=== PATIENT | male | born 1995 | race Caucasian/White ===

== ENCOUNTER 2019-07-14 09:49 | Emergency (ER) | payer BC, MEDICAID ==
[~2019-07-14] VITALS: Ht 152.4 cm; Wt 86.5 kg
[2019-07-14 09:53] VITALS: BP 88/58
== END 2019-07-14 11:22 | disposition home or self-care (01) ==
LOC: ED 11:16
DX: S09.8XXA Other specified injuries of head, initial encounter (principal); W18.30XA Fall on same level, unspecified, initial encounter; Y93.89 Activity, other specified; Y92.89 Other specified places as the place of occurrence of the external cause; Y99.8 Other external cause status
CPT/HCPCS: 99282